=== PATIENT | female | born 1990 | race Caucasian/White ===

== ENCOUNTER 2017-05-14 21:55 | Emergency (ER) | payer SELFPAY ==
[~2017-05-14] VITALS: Ht 175.3 cm; Wt 91.2 kg
[2017-05-14 22:54] LABS: MEAN CORPUSCULAR HEMOGLOBIN 30.2 pg (27.0-34.8); MEAN CORPUSCULAR HGB CONC 33.4 g/dL (32.4-35.8); MEAN CORPUSCULAR VOLUME 90.3 fL (80-100); MEAN PLATELET VOLUME 8.8 fL (7.4-10.4); PLATELET COUNT 246 x10^3/uL (130-400); RED BLOOD COUNT 5.07 x10^6/uL (3.82-5.3); RED CELL DISTRIBUTION WIDTH 13.4 % (9.6-15.2)
[2017-05-14 23:06] LABS: ALBUMIN 4.5 g/dL (3.4-5.0); ANION GAP 9 mmol/L (5-15); CALCIUM 9.6 mg/dL (8.5-10.1); CHLORIDE 106 mmol/L (98-107); CREATININE 1.04 mg/dL (0.55-1.02)
[2017-05-14 23:10] LABS: TROPONIN I < 0.015 ng/mL (0.000-0.045)
[2017-05-14 23:12] LABS: BASOPHILS % (AUTO) 1 % (0-1); EOSINOPHILS # (AUTO) 0.03 x10^3/uL (0-0.4); EOSINOPHILS % (AUTO) 0 % (1-7); LYMPHOCYTES # (AUTO) 5.77 x10^3/uL (1-3.4); LYMPHOCYTES % (AUTO) 38 % (22-44); MD SCAN; MONOCYTES # (AUTO) 0.81 x10^3/uL (0.2-0.8); MONOCYTES % (AUTO) 5 % (2-9); NEUTROPHILS # (AUTO) 8.39 x10^3/uL (1.8-6.8); NEUTROPHILS % (AUTO) 56 % (42-75)
[2017-05-14 23:51] VITALS: BP 125/95
== END 2017-05-15 00:45 | disposition home or self-care (01) ==
LOC: ED 23:59
DX: R07.89 Other chest pain (principal); D72.829 Elevated white blood cell count, unspecified; F17.210 Nicotine dependence, cigarettes, uncomplicated
CPT/HCPCS: 36415; 71045; 80048; 82040; 84484; 85025; 93005; 99406

== ENCOUNTER 2018-01-15 15:22 | Emergency (ER) | payer OTHER ==
[~2018-01-15] VITALS: Ht 175.3 cm; Wt 83.8 kg
[2018-01-15 16:00] LABS: BASOPHILS # (AUTO) 0.07 x10^3/uL (0-0.1); BASOPHILS % (AUTO) 0 % (0-1); EOSINOPHILS # (AUTO) 0.01 x10^3/uL (0-0.4); EOSINOPHILS % (AUTO) 0 % (1-7); LYMPHOCYTES # (AUTO) 2.21 x10^3/uL (1-3.4); LYMPHOCYTES % (AUTO) 13 % (22-44); MD NO; MEAN CORPUSCULAR HEMOGLOBIN 30.4 pg (27.0-34.8); MEAN CORPUSCULAR HGB CONC 33.7 g/dL (32.4-35.8); MEAN CORPUSCULAR VOLUME 90.4 fL (80-100); MEAN PLATELET VOLUME 8.9 fL (7.4-10.4); MONOCYTES # (AUTO) 1.24 x10^3/uL (0.2-0.8); MONOCYTES % (AUTO) 7 % (2-9); NEUTROPHILS # (AUTO) 13.49 x10^3/uL (1.8-6.8); NEUTROPHILS % (AUTO) 79 % (42-75); PLATELET COUNT 233 x10^3/uL (130-400); RED BLOOD COUNT 4.78 x10^6/uL (3.82-5.3); RED CELL DISTRIBUTION WIDTH 14.3 % (9.6-15.2)
[2018-01-15] MEDS ORDERED: KETOROLAC 30 MG/1 ML IM ONE (16:00)
[2018-01-15] MEDS ORDERED: KETOROLAC 30 MG/1 ML ONE (16:09)
[2018-01-15 16:11] LABS: ALBUMIN 3.8 g/dL (3.4-5.0); ANION GAP 7 mmol/L (5-15); CALCIUM 8.7 mg/dL (8.5-10.1); CHLORIDE 104 mmol/L (98-107); CREATININE 0.97 mg/dL (0.55-1.02)
[2018-01-15 16:25] LABS: ALBUMIN 3.8 g/dL (3.4-5.0); BILIRUBIN, DIRECT 0.3 mg/dL (0.1-0.2)
[2018-01-15 16:28] LABS: BILIRUBIN,INDIRECT 0.7 mg/dL (0.0-2.0); TOTAL PROTEIN 8.2 g/dL (6.4-8.2)
[2018-01-15 16:44] LABS: HCG UR SG 1.024 (1.003-1.030)
[2018-01-15 17:26] LABS: CULTURE INDICATED? YES; MICROSCOPIC INDICATED
[2018-01-15 17:57] VITALS: BP 108/74
[2018-01-15] MEDS ORDERED: CEFTRIAXONE 1,000 MG IM ONE (18:00)
[2018-01-15] MEDS ORDERED: LIDOCAINE-MPF 1%, 5ML ONE (18:17)
[2018-01-15] MEDS ORDERED: CEFTRIAXONE 1,000 MG ONE (18:17)
== END 2018-01-15 18:49 | disposition home or self-care (01) ==
LOC: ED 18:20
DX: N10 Acute pyelonephritis (principal)
CPT/HCPCS: 36415; 74176; 80048; 80076; 81001; 81025; 82040; 85025; 87077; 87086; 87186; 96372; 99285; J0696; J1885

== ENCOUNTER 2018-09-20 17:58 | Emergency (ER) | payer MEDICAID ==
[~2018-09-20] VITALS: Ht 175.3 cm; Wt 88.0 kg
[2018-09-20 18:21] VITALS: BP 121/86
[2018-09-20 19:16] LABS: MICROSCOPIC NOT IND
[2018-09-20 19:17] LABS: BASOPHILS # (AUTO) 0.03 x10^3/uL (0-0.1); BASOPHILS % (AUTO) 0 % (0-1); EOSINOPHILS # (AUTO) 0.07 x10^3/uL (0-0.4); EOSINOPHILS % (AUTO) 1 % (1-7); LYMPHOCYTES # (AUTO) 3.92 x10^3/uL (1-3.4); LYMPHOCYTES % (AUTO) 31 % (22-44); MD NO; MEAN CORPUSCULAR HGB CONC 32.8 g/dL (32.4-35.8); MEAN CORPUSCULAR VOLUME 94.8 fL (80-100); MEAN PLATELET VOLUME 8.9 fL (7.4-10.4); MONOCYTES # (AUTO) 0.68 x10^3/uL (0.2-0.8); MONOCYTES % (AUTO) 5 % (2-9); NEUTROPHILS # (AUTO) 7.98 x10^3/uL (1.8-6.8); NEUTROPHILS % (AUTO) 63 % (42-75); PLATELET COUNT 223 x10^3/uL (130-400); RED BLOOD COUNT 4.57 x10^6/uL (3.82-5.3); RED CELL DISTRIBUTION WIDTH 13.6 % (9.6-15.2)
[2018-09-20 19:28] LABS: CULTURE INDICATED? NO
--- NOTE | 2018-09-20 19:29 | NUR ---
PT IN GOWN IN [facility]. DR. SOOD AT BS. PT ATTACHED TO VS MONITORS. VSS AT THIS TIME. PT HAS CALL LIGHT WITHIN REACH AND VERBALIZES UNDERSTANDING OF ER PROCESS AND POC. PARTNER IS AT BS.
--- NOTE | 2018-09-20 20:49 | NUR ---
PT D/C WITH D/C SUMMARY. ALL QUESTIONS ANSWERED. PT DENIES ANY OTHER NEEDS PERTAINING TO THIS VISIT. PT AMBULATES TO REGISTRATION DESK WITH STEADY GAIT FOR D/C HOME WITH PARTNER. PT DENIES ANY OTHER NEEDS PERTAINING TO THIS VISIT.
== END 2018-09-20 20:52 | disposition home or self-care (01) ==
LOC: ED 20:43
DX: O26.891 Other specified pregnancy related conditions, first trimester (principal); Z3A.01 Less than 8 weeks gestation of pregnancy; R10.12 Left upper quadrant pain; W01.0XXA Fall on same level from slipping, tripping and stumbling without subsequent striking against object, initial encounter; Y93.89 Activity, other specified; Y92.009 Unspecified place in unspecified non-institutional (private) residence as the place of occurrence of the external cause; Y99.8 Other external cause status
CPT/HCPCS: 36415; 76801; 81003; 84702; 85025; 99284